=== PATIENT | male | born 1955 | race Caucasian/White ===

== ENCOUNTER 2018-09-17 11:53 | Inpatient (IN) | payer OTHER ==
[~2018-09-17] VITALS: Ht 167.6 cm; Wt 86.2 kg
[2018-09-17 12:05] VITALS: BP 171/76
--- NOTE | 2018-09-17 12:06 | NUR ---
PT AMBULATES TO BED 7
--- NOTE | 2018-09-17 12:13 | NUR ---
BIB GRAND DAUGHTER WITH C/O MID STERNAL CP X 4 DAYS WITH MINIMAL SOB,DIZZINESS AND BILAT. ARM NUMBNESS.PAIN MOSTLY WITH ACTIVITY. HX:HTN,PROSTATE CA,HIGH CHOL,DM RX; ATENOLOL, LOSARTAN, METFORMIN, ASA, LANTUS, TAMSULOSIN, MONTELUKAST, GABAPENTIN
--- NOTE | 2018-09-17 12:17 | NUR ---
Patient being evaluated by physician at bedside.
[2018-09-17] MEDS ORDERED: NITROGLYCERIN 2% 1 GM PKT TP ONE (12:25)
[2018-09-17] MEDS ORDERED: ASPIRIN 325 MG TAB PO ONE (12:25)
[2018-09-17 12:46] LABS: BASOPHILS # (AUTO) 0.1 K/uL (0.00-0.22); BASOPHILS % (AUTO) 1.3 % (0.0-2.0); EOSINOPHILS # (AUTO) 0.1 K/uL (0-0.4); EOSINOPHILS % (AUTO) 2.5 % (0.0-4.0); HEMOGLOBIN 12.6 g/dL (12.0-18.0); LYMPHOCYTES # (AUTO) 0.8 K/uL (2.0-11.5); LYMPHOCYTES % (AUTO) 13.7 % (20.5-51.1); MEAN CORPUSCULAR HEMOGLOBIN 28 pg (27-31); MEAN CORPUSCULAR HGB CONC 32 g/dL (33-37); MEAN CORPUSCULAR VOLUME 85.3 fL (80-94); MONOCYTES # (AUTO) 0.5 K/uL (0.8-1.0); MONOCYTES % (AUTO) 9.2 % (1.7-9.3); NEUTROPHILS # (AUTO) 4.3 K/uL (1.8-7.7); NEUTROPHILS % (AUTO) 73.3 % (42.2-75.2); PLATELET COUNT (AUTO) 163 K/uL (140-450); RED BLOOD CELL COUNT(AUTO) 4.57 MIL/uL (4.20-6.10); RED CELL DISTRIBUTION WIDTH 14.6 % (11.6-13.7); WHITE BLOOD COUNT (AUTO) 5.9 K/uL (4.8-10.8)
[2018-09-17 12:59] LABS: ANION GAP 11.6 (8-16); CARBON DIOXIDE 28.6 mmol/L (21-32); CREATININE 0.8 mg/dL (0.7-1.3); POTASSIUM 4.2 mmol/L (3.5-5.1)
[2018-09-17 13:01] LABS: MAGNESIUM 1.7 mg/dL (1.8-2.4)
[2018-09-17 13:14] LABS: PROTHROMBIN TIME 9.8 secs (10.8-13.4)
[2018-09-17 13:17] LABS: ALBUMIN 3.7 g/dL (3.4-5.0); TOTAL BILIRUBIN 0.5 mg/dL (0.0-1.0)
[2018-09-17] MEDS ORDERED: MONT10TA35 PO (13:19)
[2018-09-17] MEDS ORDERED: BALS750C2 PO (13:19)
[2018-09-17] MEDS ORDERED: LOSA100T1 PO (13:19)
[2018-09-17] MEDS ORDERED: ASPI81CT89 PO (13:19)
[2018-09-17] MEDS ORDERED: CHLO25TA33 PO (13:19)
[2018-09-17] MEDS ORDERED: TAMS0.4C96 PO (13:19)
[2018-09-17] MEDS ORDERED: OMEP20TC12 PO (13:19)
[2018-09-17] MEDS ORDERED: ZET10 PO (13:19)
[2018-09-17] MEDS ORDERED: INSU100S22 SUBQ (13:19)
[2018-09-17] MEDS ORDERED: INSU10SU8 SUBQ (13:19)
[2018-09-17] MEDS ORDERED: METF1000 PO (13:19)
[2018-09-17] MEDS ORDERED: GABA400C PO (13:19)
[2018-09-17] MEDS ORDERED: ATEN25TA7 PO (13:19)
--- NOTE | 2018-09-17 13:24 | NUR ---
XRAY AT BEDSIDE
[2018-09-17 13:36] LABS: ACETONE, SERUM NEGATIVE (NEGATIVE)
[2018-09-17 14:09] LABS: D-DIMER < 100 ng/ml (0-400)
[2018-09-17] MEDS ORDERED: HYDROcodone/APAP 5/325 MG 1 TAB TAB PO PRN (14:30)
[2018-09-17] MEDS ORDERED: ONDANSETRON 4 MG/2 ML VIAL IVP PRN (14:30)
[2018-09-17] MEDS ORDERED: NITROGLYCERIN 0.4 MG TAB SL PRN (14:30)
[2018-09-17] MEDS ORDERED: ZOLPIDEM 5 MG TAB PO PRN (14:30)
--- NOTE | 2018-09-17 15:09 | NUR ---
PT TAKEN TO TELE FLOOR BY REYNA DIETRICH AND MIKE CRAIG
[2018-09-17 15:20] VITALS: BP 135/64
--- NOTE | 2018-09-17 15:20 | NUR ---
Patient will be admitted to care of Dr Burger. Admited to tele room 104A. Belongings list completed. Report to REYNA Whitman.
--- NOTE | 2018-09-17 15:20 | NUR ---
RECEIVED REPORT FROM KARLO ED RN. MALE PT CAME FROM ER PER MARIA LUZ WITH CC OF CHEST PAIN X4 DAYS, ASSESSMENT DONE, VITAL SIGNS TAKEN, BP SLIGHTLY ELEVATED, DENIES CHEST PAIN NOW, COMPLAINING OF HEADACHE 3/10, WILL MEDICATE PRN, ACTIVE BOWEL SOUNDS, PT GRANDDAUGHTER AT BEDSIDE, ON CARDIAC DIET WITH FLUIDS TOLERATED, IV ON LEFT AC 20G SALINE LOCKED, PT AAOX4. PT ORIENTED TO ROOM AND CALL LIGHT, PLAN OF CARE DISCUSSED WITH PT AND GRANDDAUGHTER, SAFETY MEASURES IN PLACE, CALL LIGHT WITHIN REACH.
[2018-09-17 16:00] VITALS: BP 138/62
[2018-09-17 16:04] LABS: CHOL/HDL RATIO 4.2 (1-4.5)
--- NOTE | 2018-09-17 16:34 | NUR ---
PER DR. ZAVALA'S ORDERS, PT PLACED ON SLIDING SCALE UNTIL PT'S FAMILY BRINGS CURRENT INSULIN MEDS TAKEN AT HOME.
[2018-09-17] MEDS ORDERED: BALSALAZIDE DISODIUM 750 MG PO SCH (17:00)
[2018-09-17] MEDS: ACETAMINOPHEN 325 MG TAB PO PRN (17:53)
--- NOTE | 2018-09-17 17:53 | NUR ---
PAGED DR ZAVALA TO ASK FOR PT DM INSULIN BECAUSE NO ORDERS CURRENTLY PRESENT. WAITING FOR CALL BACK.
--- NOTE | 2018-09-17 17:54 | NUR ---
ADMINISTERED TYLENOL PRN FOR HEADACHE. PT TOLERATED MED WELL.
--- NOTE | 2018-09-17 19:26 | NUR ---
ENDORSED PT TO GROUP ACCOUNT DIRECTOR FOR CONTINUITY OF CARE. PT IN STABLE CONDITION.
--- NOTE | 2018-09-17 19:26 | NUR ---
RECEIVED REPORT FROM DAY SHIFT NURSE SANDY, AT PT BEDSIDE. PT IN IN STABLE CONDITION. PT FAMILY IS AT BEDSIDE. PT IS AA0X4. PT IS ON RA WITH RESPIRATIONS EVEN AND UNLABORED. IV ACCESS IN L AC 20G SALINE LOCKED. IV IS PATENT AND INTACT. SKIN IS INTACT. PT HAS NO C/O PAIN AT THIS TIME. BED IS LOCKED, LOW POSITION WITH SIDE RAILS UP X2. BOARD UPDATED. CALL LIGHT IS WITHIN REACH. WILL CONTINUE TO MONITOR.
[2018-09-17 20:00] VITALS: BP 135/73
[2018-09-17] MEDS ORDERED: PNEUMOCOCCAL VACCINE 23 MCG/0.5 ML VIAL IMVAC PRN (20:55)
[2018-09-17] MEDS ORDERED: LOSARTAN POTASSIUM 100 MG PO SCH (21:00)
[2018-09-17] MEDS ORDERED: INSULIN GLARGINE HUM REC ANLOG 40 UNIT SUBQ SCH (21:00)
[2018-09-17] MEDS ORDERED: GABAPENTIN 100 MG CAP PO SCH (21:00)
[2018-09-17] MEDS: BLOOD GLUCOSE MONITORING 1 DEV DEV FS SCH (21:02)
--- NOTE | 2018-09-17 21:06 | NUR ---
BS CHECKED 319, INSULIN SLIDING SCALE PENDING. SPOKE WITH PHARMACY SAID "WILL WORK ON IT". WILL ADMINISTER INSULIN ONCE VERIFIED.
[2018-09-17] MEDS: TAMSULOSIN 0.4 MG CAP PO SCH (21:09)
[2018-09-17] MEDS: GABAPENTIN 300 MG, GABAPENTIN 100 MG PO SCH ×2 (21:09)
[2018-09-17] MEDS: ATENOLOL 25 MG TAB PO SCH (21:09)
--- NOTE | 2018-09-17 21:10 | NUR ---
ADMINISTERED SCHEDULED MEDICATIONS. PT TOLERATED WELL. NO S/SX OF DISTRESS. WILL CONTINUE TO MONITOR.
[2018-09-17] MEDS: INSULIN LISPRO SLIDING SCALE 100 UNITS/ML VIAL SUBQ PRN (21:15)
--- NOTE | 2018-09-17 21:15 | NUR ---
INSULIN COVERAGE GIVEN PER MD ORDERS. PT TOLERATED WELL. NO S/SX OF DISTRESS. WILL CONTINUE TO MONITOR.
[2018-09-17] MEDS ORDERED: DEXTROSE 50% 50 ML SYR IVP PRN (22:40)
--- NOTE | 2018-09-17 23:30 | NUR ---
PT ASLEEP IN BED. NO SIGNS OR SYMPTOMS OF DISTRESS. WILL CONTINUE TO MONITOR.
[2018-09-18] VITALS: BP 116/66
--- NOTE | 2018-09-18 01:20 | NUR ---
PT ASLEEP IN BED. NO SIGNS OR SYMPTOMS OF DISTRESS. WILL CONTINUE TO MONITOR.
[2018-09-18] MEDS ORDERED: PNEUMOCOCCAL VACCINE 23 MCG/0.5 ML VIAL IMVAC SCH (01:55)
--- NOTE | 2018-09-18 03:32 | NUR ---
PT ASLEEP IN BED. NO SIGNS OR SYMPTOMS OF DISTRESS. WILL CONTINUE TO MONITOR.
[2018-09-18 04:00] VITALS: BP_SYST 102; BP_SYST 112; BP_DIAS 50; BP_DIAS 57
[2018-09-18] MEDS: BLOOD GLUCOSE MONITORING 1 DEV DEV FS SCH ×4 (06:05→20:22)
[2018-09-18] MEDS: INSULIN LISPRO SLIDING SCALE 100 UNITS/ML VIAL SUBQ PRN ×4 (06:08→20:34)
--- NOTE | 2018-09-18 06:09 | NUR ---
INSULIN COVERAGE GIVEN FOR BS 184. PT TOLERATED WELL. NO S/SX OF DISTRESS. WILL CONTINUE TO MONITOR.
[2018-09-18] MEDS ORDERED: REG INSULIN SUBQ SCH (06:30)
[2018-09-18] MEDS ORDERED: INSULIN NPH HUM SUBQ SCH (06:30)
[2018-09-18] MEDS ORDERED: [UNRECOGNIZED DRUG - OTHER] SUBQ SCH (06:30)
--- NOTE | 2018-09-18 07:19 | NUR ---
ENDORSED PT TO DAY SHIFT NURSE FOR CONTINUITY OF CARE. PT IN STABLE CONDITION.
--- NOTE | 2018-09-18 07:29 | NUR ---
RECEIVED REPORT FROM PRACTICAL NURSE CLINICAL COORDINATOR NURSE GILBERTO AT PT BEDSIDE. PT IN IN STABLE CONDITION. PT IN BED SLEEPING. PT IS ON RA WITH RESPIRATIONS EVEN AND UNLABORED. IV ACCESS IN L AC 20G SALINE LOCKED. IV IS PATENT AND INTACT. SKIN IS INTACT. PT HAS NO C/O PAIN AT THIS TIME. BED IS LOCKED, LOW POSITION WITH SIDE RAILS UP X2. BOARD UPDATED. CALL LIGHT IS WITHIN REACH. WILL CONTINUE TO MONITOR.
[2018-09-18] MEDS ORDERED: BLOOD GLUCOSE MONITORING 1 DEV DEV FS SCH (07:30)
[2018-09-18 07:31] LABS: BASOPHILS # (AUTO) 0.1 K/uL (0.00-0.22); BASOPHILS % (AUTO) 2.2 % (0.0-2.0); EOSINOPHILS # (AUTO) 0.3 K/uL (0-0.4); EOSINOPHILS % (AUTO) 4.5 % (0.0-4.0); HEMATOCRIT 39.4 % (36-52); HEMOGLOBIN 12.9 g/dL (12.0-18.0); LYMPHOCYTES # (AUTO) 1.1 K/uL (2.0-11.5); LYMPHOCYTES % (AUTO) 19.5 % (20.5-51.1); MEAN CORPUSCULAR HEMOGLOBIN 28 pg (27-31); MEAN CORPUSCULAR HGB CONC 33 g/dL (33-37); MEAN CORPUSCULAR VOLUME 85.2 fL (80-94); MONOCYTES # (AUTO) 0.6 K/uL (0.8-1.0); MONOCYTES % (AUTO) 10.7 % (1.7-9.3); NEUTROPHILS # (AUTO) 3.7 K/uL (1.8-7.7); NEUTROPHILS % (AUTO) 63.1 % (42.2-75.2); PLATELET COUNT (AUTO) 168 K/uL (140-450); RED BLOOD CELL COUNT(AUTO) 4.63 MIL/uL (4.20-6.10); WHITE BLOOD COUNT (AUTO) 5.9 K/uL (4.8-10.8)
[2018-09-18 08:00] VITALS: BP 127/57
[2018-09-18] MEDS: PANTOPRAZOLE 40 MG TABEC PO SCH (08:19)
[2018-09-18] MEDS: ACETAMINOPHEN 325 MG TAB PO PRN (08:19)
[2018-09-18] MEDS: ASPIRIN 81 MG TAB.CHEW PO SCH (08:20)
[2018-09-18] MEDS: DOCUSATE SODIUM 100 MG GELCAP PO SCH (08:20)
[2018-09-18] MEDS: ATENOLOL 25 MG TAB PO SCH (08:20)
[2018-09-18] MEDS: MONTELUKAST SODIUM 10 MG TAB PO SCH (08:20)
--- NOTE | 2018-09-18 08:25 | NUR ---
ADMINISTERED MORNING MEDS TO PT. TOLERATED WELL. PT REFUSED SINGULAIR, COLACE, AND TENORMIN. ALL NEEDS MET AT THIS TIME. CALL LIGHT WITHIN REACH. BED IN LOW POSITION. WILL ROUND FREQUENTLY.
[2018-09-18 08:28] LABS: ALBUMIN 3.6 g/dL (3.4-5.0); ANION GAP 11.8 (8-16); CARBON DIOXIDE 28.8 mmol/L (21-32); CREATININE 0.8 mg/dL (0.7-1.3); POTASSIUM 4.6 mmol/L (3.5-5.1); TOTAL BILIRUBIN 0.5 mg/dL (0.0-1.0)
[2018-09-18] MEDS ORDERED: NON-FORMULARY ITEM (Chlorthalidone 25 MG) PO SCH (09:00)
[2018-09-18] MEDS ORDERED: NON-FORMULARY ITEM (Omeprazole (Omeprazole) 20 MG) PO SCH (09:00)
--- NOTE | 2018-09-18 09:02 | NUR ---
PT REPORTS SUBSTERNAL CHEST PAIN LIKE PREVIOUSLY EXPERIENCED IN ED. GAVE NITROGLYCERIN UNDERNEATH THE TONGUE. WAITING FOR RESULTS OF RELIEF
--- NOTE | 2018-09-18 09:10 | NUR ---
PT STATES RELIEF OF CHEST PAIN WITH ONE DOSE OF NITRO SL. PHYSICIAN PAGED TO NOTIFY OF OCCURRENCE.
--- NOTE | 2018-09-18 11:20 | NUR ---
PT SLEEPING IN BED. NO SIGNS OF PAIN NOTED. ALL NEEDS MET AT THIS TIME.
[2018-09-18 12:00] VITALS: BP 125/83
--- NOTE | 2018-09-18 13:40 | NUR ---
PT RESTING IN BED WITH FAMILY AT BEDSIDE. PT STATES NO PAIN OR SOB. ALL NEEDS MET AT THIS TIE. WILL CONTINUE TO MONITOR FREQUENTLY.
[2018-09-18] MEDS ORDERED: RANOLAZINE 500 MG TER PO SCH (15:50)
[2018-09-18 16:00] VITALS: BP 105/66
[2018-09-18] MEDS: RANOLAZINE 500 MG TER PO SCH ×2 (16:43→20:31)
--- NOTE | 2018-09-18 16:43 | NUR ---
RANEXA GIVEN TO PT PER 'S ORDERS. DR. BARBA AWARE OF PT VITAL SIGNS. PT IN STABLE CONDITION AT THIS TIME.
--- NOTE | 2018-09-18 19:25 | NUR ---
RECEIVED REPORT FROM DAY SHIFT NURSE SANDY, AT PT BEDSIDE. PT IN IN STABLE CONDITION. PT IS AA0X4. PT IS ON RA WITH RESPIRATIONS EVEN AND UNLABORED. IV ACCESS IN L AC 20G SALINE LOCKED. IV IS PATENT AND INTACT. SKIN IS INTACT. PT HAS NO C/O PAIN AT THIS TIME. BED IS LOCKED, LOW POSITION WITH SIDE RAILS UP X2. BOARD UPDATED. CALL LIGHT IS WITHIN REACH. WILL CONTINUE TO MONITOR.
--- NOTE | 2018-09-18 19:25 | NUR ---
ENDORSED PT TO ELECTRICIAN OUTSIDE GILBERTO FOR CONTINUITY OF CARE. PT IN STABLE CONDITION AT THIS TIME.
[2018-09-18 20:00] VITALS: BP 137/67
[2018-09-18] MEDS: GABAPENTIN 300 MG, GABAPENTIN 100 MG PO SCH ×2 (20:32)
[2018-09-18] MEDS: TAMSULOSIN 0.4 MG CAP PO SCH (20:32)
--- NOTE | 2018-09-18 20:35 | NUR ---
ADMINISTERED SCHEDULED MEDICATIONS. INSULIN COVERAGE GIVEN FOR BS 231 PER MD ORDERS. PT TOLERATED WELL. NO SIGNS OR SYMPTOMS OF DISTRESS. WILL CONTINUE TO MONITOR.
[2018-09-18] MEDS ORDERED: ATENOLOL 25 MG TAB PO SCH (21:00)
[2018-09-18] MEDS ORDERED: INSULIN LANTUS 100 UNITS/ML 10 ML VIAL SUBQ SCH (21:00)
--- NOTE | 2018-09-18 21:36 | NUR ---
EKG BEING PERFORMED AT BEDSIDE.
--- NOTE | 2018-09-18 23:06 | NUR ---
PT ASLEEP IN BED. NO S/SX OF DISTRESS. WILL CONTINUE TO MONITOR.
[2018-09-19] VITALS: BP 105/59
--- NOTE | 2018-09-19 01:03 | NUR ---
NO CHANGE IN CONDITION. PT ASLEEP IN BED. NO S/SX OF DISTRESS. WILL CONTINUE TO MONITOR.
--- NOTE | 2018-09-19 03:59 | NUR ---
NO CHANGE IN CONDITION. PT ASLEEP IN BED. WITH NO SIGNS OR SYMPTOMS OF DISTRESS.
[2018-09-19 04:00] VITALS: BP 112/57
[2018-09-19] MEDS: BLOOD GLUCOSE MONITORING 1 DEV DEV FS SCH ×2 (05:37→11:58)
[2018-09-19] MEDS: INSULIN LISPRO SLIDING SCALE 100 UNITS/ML VIAL SUBQ PRN ×2 (05:44→12:36)
--- NOTE | 2018-09-19 05:44 | NUR ---
INSULIN COVERAGE GIVEN FOR BS 155 PER MD ORDERS. PT TOLERATED WELL. WILL CONTINUE TO MONITOR.
--- NOTE | 2018-09-19 07:15 | NUR ---
RECEIVED PT REPORT FROM RIGGER APPRENTICE NURSE AT PT BEDSIDE. PT IN IN STABLE CONDITION. PT IS AAOX4. PT IS ON RA WITH RESPIRATIONS EVEN AND UNLABORED. IV ACCESS NOTED L AC 20G, SALINE LOCKED. IV IS PATENT AND INTACT. SKIN IS INTACT. CHEST PAIN 1/10. BED IS LOCKED, IN LOWEST POSITION WITH SIDE RAILS UP X2. BOARD UPDATED. CALL LIGHT IS WITHIN REACH. WILL CONTINUE TO MONITOR.
--- NOTE | 2018-09-19 07:16 | NUR ---
ENDORSED PT TO DAY SHIFT NURSE FOR CONTINUITY OF CARE. PT IN STABLE CONDITION.
[2018-09-19 07:52] LABS: BASOPHILS # (AUTO) 0.1 K/uL (0.00-0.22); BASOPHILS % (AUTO) 1.3 % (0.0-2.0); EOSINOPHILS # (AUTO) 0.2 K/uL (0-0.4); EOSINOPHILS % (AUTO) 3.5 % (0.0-4.0); HEMATOCRIT 39.2 % (36-52); HEMOGLOBIN 12.9 g/dL (12.0-18.0); LYMPHOCYTES # (AUTO) 1.4 K/uL (2.0-11.5); LYMPHOCYTES % (AUTO) 20.7 % (20.5-51.1); MEAN CORPUSCULAR HEMOGLOBIN 28 pg (27-31); MEAN CORPUSCULAR HGB CONC 33 g/dL (33-37); MONOCYTES # (AUTO) 0.6 K/uL (0.8-1.0); MONOCYTES % (AUTO) 9.3 % (1.7-9.3); NEUTROPHILS # (AUTO) 4.4 K/uL (1.8-7.7); NEUTROPHILS % (AUTO) 65.2 % (42.2-75.2); PLATELET COUNT (AUTO) 171 K/uL (140-450); RED BLOOD CELL COUNT(AUTO) 4.61 MIL/uL (4.20-6.10); RED CELL DISTRIBUTION WIDTH 14.7 % (11.6-13.7); WHITE BLOOD COUNT (AUTO) 6.8 K/uL (4.8-10.8)
[2018-09-19 08:00] VITALS: BP 140/62
[2018-09-19 08:29] LABS: ALBUMIN 3.5 g/dL (3.4-5.0); ANION GAP 14.7 (8-16); CARBON DIOXIDE 26.1 mmol/L (21-32); CREATININE 0.8 mg/dL (0.7-1.3); POTASSIUM 3.8 mmol/L (3.5-5.1); TOTAL BILIRUBIN 0.5 mg/dL (0.0-1.0)
--- NOTE | 2018-09-19 08:44 | NUR ---
PATIENT HAS BEEN SCREENED AND CATEGORIZED MODERATE NUTRITION RISK. PATIENT WILL BE SEEN WITHIN 3-5 DAYS OF ADMISSION. 09/20/18 09/22/[address]
[2018-09-19] MEDS: PANTOPRAZOLE 40 MG TABEC PO SCH (08:55)
[2018-09-19] MEDS: ASPIRIN 81 MG TAB.CHEW PO SCH (08:55)
[2018-09-19] MEDS: MONTELUKAST SODIUM 10 MG TAB PO SCH (08:55)
[2018-09-19] MEDS: RANOLAZINE 500 MG TER PO SCH (08:55)
[2018-09-19] MEDS: DOCUSATE SODIUM 100 MG GELCAP PO SCH (08:57)
[2018-09-19] MEDS ORDERED: LOSARTAN 50 MG TAB PO SCH (09:00)
[2018-09-19] MEDS ORDERED: amLODIPine 5 MG TAB PO SCH (11:30)
[2018-09-19 12:00] VITALS: BP 130/70
--- NOTE | 2018-09-19 14:20 | NUR ---
WALKED WITH PT AROUND THE UNIT WITH SPO2 MONITORING. NO S/S OF ACUTE DISTRESS, PT DENIES ANY PAIN, O2 SAT IS BETWEEN 96 -100 %
[2018-09-19] MEDS ORDERED: AMLO5TAB PO (15:34)
[2018-09-19] MEDS ORDERED: RANEX500 PO ×3 (15:38→15:40)
[2018-09-19] MEDS ORDERED: ISOS20TA13 PO ×3 (15:44→15:47)
[2018-09-19] MEDS ORDERED: NITR0.4T2 SL (15:51)
[2018-09-19 16:00] VITALS: BP 135/70
--- NOTE | 2018-09-19 16:25 | NUR ---
PT DISCHARGED PER MD ORDER. DISCHARGE INSTRUCTIONS AND MEDICATION TEACHING GIVEN. RX PROVIDED, MADE PT AND HIS GRANDDAUGHTER AWARE THAT HE NEEDS TO MAKE APPT WITH HIS PCP TO GET REFERRAL FOR [employer] AND HAVE A STRESS TEST. PT AND HIS GRANDDAUGHTER CEFERINO VERBALIZED UNDERSTANDING. IV CATH DC'D, TIP INTACT, PRESSURE APPLIED. PT DRESSED HIMSELF. PT LEFT IN STABLE CONDITION, NO S/S OF DISTRESS ON RM AIR. DENIES PAIN OR DIZZINESS. PT LEFT WITH ALL HIS BELONGINGS WITH HIS GRANDDAUGHTER. HOME MEDS HAS BEEN RETURNED TO PT.
[2018-09-19] MEDS ORDERED: ISOSORBIDE MONONITRATE 30 MG TABER PO SCH (17:30)
--- NOTE | 2018-09-21 10:47 | NUR ---
Called Dr. J Carlos [facility]endariz's clinic to make a follow up appointment for pt. Pt is already in the clinic right now seeing the doctor.
== END 2018-09-19 16:25 | disposition home or self-care (01) | DRG 198 ==
LOC: MED 11:53 → MTU 14:29
PROVIDERS: ADMIT Hospitalist; ATTEND Hospitalist
DX: I20.9 Angina pectoris, unspecified (principal); E87.1 Hypo-osmolality and hyponatremia; E11.9 Type 2 diabetes mellitus without complications; E78.5 Hyperlipidemia, unspecified; I10 Essential (primary) hypertension; Z85.46 Personal history of malignant neoplasm of prostate; Z92.3 Personal history of irradiation; Z90.49 Acquired absence of other specified parts of digestive tract; E66.9 Obesity, unspecified; Z68.30 Body mass index [BMI] 30.0-30.9, adult
CPT/HCPCS: 36415; 71045; 80053; 82009; 82948; 83036; 83721; 83735; 83880; 84484; 85025; 85379; 85610; 85730; 87081; 90732; 93005; 99285; J1815

== ENCOUNTER 2021-03-28 14:47 | Emergency (ER) | payer OTHER ==
[~2021-03-28] VITALS: Ht 167.6 cm; Wt 90.7 kg
[~2021-03-28 14:47] MED LIST: AMLO5TAB PO; ASPI-1822 PO; ATEN25TA7 PO; BALS750C2 PO; CHLO25TA33 PO; EZET10TA14 PO; GABA400C PO; INSU100S22 SUBQ; ISOS20TA13 PO; LOSA100T1 PO; METF1000 PO; MONT10TA35 PO; NITR0.4T2 SL; NOV7030 SUBQ; OMEP-278 PO; RANEX500 PO; TAMS0.4C96 PO
[2021-03-28 15:03] VITALS: BP 163/72
[2021-03-28] MEDS ORDERED: ACETAMINOPHEN 325 MG TAB PO ONE (15:30)
[2021-03-28] MEDS ORDERED: LIDOCAINE 5% 1 EA PATCH TP SCH (15:30)
[2021-03-28] MEDS ORDERED: LID5T TP (17:04)
[2021-03-28] MEDS ORDERED: NAPR-54 PO (17:04)
[2021-03-28 17:11] VITALS: BP 163/72
== END 2021-03-28 17:11 | disposition home or self-care (01) ==
LOC: MED 14:47
DX: S20.20XA Contusion of thorax, unspecified, initial encounter (principal); E11.9 Type 2 diabetes mellitus without complications; I10 Essential (primary) hypertension; Z85.46 Personal history of malignant neoplasm of prostate; Z79.4 Long term (current) use of insulin; Z79.899 Other long term (current) drug therapy; W06.XXXA Fall from bed, initial encounter; Y93.89 Activity, other specified; Y92.89 Other specified places as the place of occurrence of the external cause; Y99.8 Other external cause status
CPT/HCPCS: 71101; 99283